=== PATIENT | female | born 1990 | race Caucasian/White ===

== ENCOUNTER 2019-05-23 13:10 | Emergency (ER) | payer SELFPAY ==
--- NOTE | 2019-05-23 14:48 | EDM.PDOC ---
ED HPI GENERAL MEDICAL PROBLEM - General Chief Complaint: Respiratory Problem Stated Complaint: COUGH BECOMES SOB Time Seen by Provider: 05/23/19 14:41 Source of Information: Reports: Patient, RN Notes Reviewed - History of Present Illness INITIAL COMMENTS - FREE TEXT/NARRATIVE: 8-year-old female with some intermittent shortness of breath over the past 7 to 10 days. This has been worse the past several days several attacks of difficulty breathing. She does have history of asthma. She has run out of her inhaler. Not have a current prescription. No recent cough congestion sore throat fever or chills. Chest Pain Score (Numeric/FACES): 8 - Related Data Allergies Allergy/AdvReac Type Severity Reaction Status Date / Time Fish Containing Products Allergy Vomiting Verified 05/23/19 14:18 Sulfa (Sulfonamide Allergy Hives Verified 05/23/19 14:18 Antibiotics) Home Meds: Home Meds . [No Known Home Meds] 05/23/19 [History] Past Medical History HEENT History: Reports: Cataract, Impaired Vision Cardiovascular History: Reports: Heart Murmur Respiratory History: Reports: Asthma Musculoskeletal History: Reports: Muscular Dystrophy - Past Surgical History Female Surgical History: Reports: D&C Neurological Surgical History: Reports: Scoliosis Social & Family History - Tobacco Use Smoking Status *Q: Never Smoker Second Hand Smoke Exposure: No - Caffeine Use Caffeine Use: Reports: Soda - Recreational Drug Use Recreational Drug Use: No ED ROS GENERAL - Review of Systems Review Of Systems: See Below Constitutional: Denies: Fever, Chills HEENT: Denies: Sinus Problem, Throat Pain Respiratory: Reports: Shortness of Breath, Wheezing. Denies: Cough Cardiovascular: Denies: Chest Pain GI/Abdominal: Denies: Abdominal Pain Musculoskeletal: Reports: No Symptoms Skin: Reports: No Symptoms Neurological: Reports: No Symptoms ED EXAM, GENERAL - Physical Exam Exam: See Below General Appearance: Alert, No Apparent Distress Nose: Normal Inspection Throat/Mouth: Normal Inspection, Normal Oropharynx Head: Atraumatic Neck: Supple Respiratory/Chest: No Respiratory Distress, Lungs Clear, Normal Breath Sounds. No: Rhonchi, Wheezing (No wheezing at time of exam) Cardiovascular: Regular Rate, Rhythm Extremities: Normal Inspection. No: Pedal Edema Neurological: Alert, Oriented, No Motor/Sensory Deficits Skin Exam: Warm, Dry, Normal Color Course - Vital Signs Last Recorded V/S: Last Vital Signs Temp 97.4 F 05/23/19 14:19 Pulse 75 05/23/19 14:19 Resp 14 05/23/19 14:19 BP 125/89 05/23/19 14:19 Pulse Ox 98 05/23/19 14:19 Departure - Departure Time of Disposition: 14:48 Disposition: Home, Self-Care 01 Condition: Fair Clinical Impression: Asthma - Discharge Information Instructions: Asthma, Adult, [id number] Referrals: PCP,None [Primary Care Provider] - Forms: ED Department Discharge Additional Instructions: albuterol inhaler 2 puffs every 4-6 hours as needed. Follow-up clinic as needed. Return to ED as needed. Sepsis Event Note - Evaluation Sepsis Screening Result: No Definite Risk - Focused Exam Date Exam was Performed: 05/28/19 Time Exam was Performed: 03:17
== END 2019-05-23 15:25 | disposition home or self-care (01) ==
LOC: JD.ED 13:10
CPT/HCPCS: 99282; 99284

== ENCOUNTER 2019-06-23 01:33 | Emergency (ER) | payer OTHER ==
[2019-06-23] MEDS ORDERED: Acetaminophen/HYDROcodone 325-5 MG Tab PO ONE (04:23)
--- NOTE | 2019-06-23 04:23 | EDM.PDOC ---
ED HPI GENERAL MEDICAL PROBLEM - General Chief Complaint: Lower Extremity Injury/Pain Stated Complaint: left foot injury at work Time Seen by Provider: 06/23/19 04:08 Source of Information: Reports: Patient, Significant Other (Boyfriend) History Limitations: Reports: No Limitations - History of Present Illness INITIAL COMMENTS - FREE TEXT/NARRATIVE: Ms. Sanz is a pleasant 28-year-old woman with a past medical history significant for untreated muscular dystrophy, who states that she slipped on ice and fell while taking the trash out at work around 00:30 this morning. When she did so, she twisted her left ankle, now presents with pain and swelling to the lateral aspect of the left ankle. She is otherwise uninjured. No prior left ankle or foot injury. The patient denies recent fever, chills, cough, dyspnea, chest pain, palpitations, nausea, vomiting, constipation, diarrhea, abdominal pain, urinary symptoms, recent weight gain or weight loss, recent bloody bowel movements or black bowel movements, recent joint aches, headaches, or rashes. Here in the ED, the patient is found to be hemodynamically stable, afebrile, saturating 98% on room air. The patient does not have a PCP. She did not receive an influenza vaccine this season, and declined an offer to receive one here today. Left Ankle Pain Score (Numeric/FACES): 6 - Related Data Allergies Allergy/AdvReac Type Severity Reaction Status Date / Time Fish Containing Products Allergy Vomiting Verified 06/23/19 02:06 Sulfa (Sulfonamide Allergy Hives Verified 06/23/19 02:06 Antibiotics) Home Meds: Home Meds Acetaminophen/HYDROcodone [Montgomery 325-5 MG] 1 - 2 tab PO Q6H PRN #20 tablet 06/22 [Rx] Ondansetron [Zofran ODT] 1 tab PO Q8H PRN #10 tab.dis 06/23/19 [Rx] Past Medical History HEENT History: Reports: Impaired Vision Respiratory History: Reports: Asthma (suspected, not tested) Musculoskeletal History: Reports: Back Pain, Chronic (Scoliosis), Muscular Dystrophy (untreated) - Past Surgical History HEENT Surgical History: Reports: Oral Surgery (2 wisdom teeth extraction surgeries) Female Surgical History: Reports: D&C (x 1) Social & Family History - Tobacco Use Smoking Status *Q: Never Smoker - Caffeine Use Caffeine Use: Reports: Soda - Alcohol Use Alcohol Use History: Yes Alcohol Use Frequency: Socially - Recreational Drug Use Recreational Drug Use: No - Living Situation & Occupation Living situation: Reports: Single, with Significant Other (Boyfriend) 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 ED EXAM, GENERAL - Physical Exam Exam: See Below Exam Limited By: No Limitations General Appearance: Alert, WD/WN, No Apparent Distress Extremities: Other (Moderate swelling without ecchymosis over the lateral left ankle. There is tenderness in this area. Minimal, if any, swelling to the remainder of the ankle. Neurovascular status of the left lower extremity is intact.) ED TRAUMA EXTREMITY PROCEDURES - Splinting Left Lower Extremity Splint Site: Left ankle Pre-Procedure NV Status: Normal Post-Procedure NV Status: Normal Splint Material: Fiberglass Splint Design: Posterior Applied & Form Fitted By: Provider Provider Post-Splint Application NV Check: NV Status Normal, Good Position Complications: No Course - Vital Signs Last Recorded V/S: Last Vital Signs Temp 36.8 C 06/23/19 01:45 Pulse 86 06/23/19 01:45 Resp 16 06/23/19 01:45 BP 112/76 06/23/19 01:45 Pulse Ox 98 06/23/19 01:45 - Orders/Labs/Meds Meds: Medications Discontinued Medications Generic Name Dose Route Start Last Admin Trade Name Freq PRN Reason Stop Dose Admin Hydrocodone Bitart/Acetaminophen 2 tab 06/23/19 04:23 06/23/19 04:33 Montgomery 325-5 Mg PO 06/23/19 04:24 2 tab ONETIME ONE Administration - Re-Assessments/Exams Free Text/Narrative Re-Assessment/Exam: 06/23/19 04:22 4-view radiographs of the patient's left ankle appear to demonstrate a comminuted but nondisplaced fracture of the distal fibula. The ankle mortise appears to be intact and normal in appearance. Soft tissue swelling is noted over the distal fibula. No other bony injuries or dislocations are seen. Formal read per the Radiologist pending. I will place the patient into a posterior mold splint, and have her fitted for crutches. She should ice and elevate her left ankle as much as possible. She should follow-up with Ortho in about 1 week. 06/23/19 04:42 A posterior mold splint was placed, with the patient's left ankle at about 90 degrees. I will discharge her home with a prescription for Montgomery and Zofran, with the recommendation that she take [id number] ibuprofen around-the- clock. Departure - Departure Time of Disposition: 04:42 Disposition: Home, Self-Care 01 Condition: Good Clinical Impression: Closed fracture of left distal fibula - Discharge Information *PRESCRIPTION DRUG MONITORING PROGRAM REVIEWED*: Not Applicable *COPY OF PRESCRIPTION DRUG MONITORING REPORT IN PATIENT MIKEY: Not Applicable Prescriptions: Acetaminophen/HYDROcodone [Montgomery 325-5 MG] 1 - 2 tab PO Q6H PRN #20 tablet PRN Reason: Pain (Severe 7-10) Ondansetron [Zofran ODT] 1 tab PO Q8H PRN #10 tab.dis PRN Reason: Nausea/Vomiting Instructions: Ankle Fracture, [id number] Referrals: Pasquale Connell MD [Physician] - Forms: ED Department Discharge, ED Return to Work/School Form Additional Instructions: You were seen in the emergency room after slipping and falling, injuring her left ankle. Work-up in the ER included x-rays of your left ankle, which showed that you have a distal fibula fracture. Your left ankle has been placed into a splint. The splint cannot get wet. We recommend that you ice and elevate your left ankle as much as possible over the next 2 days, to help minimize swelling. The splint is made of fiberglass, and will shatter if you bear weight on it. Use crutches for all ambulation. We recommend that you take [id number] ibuprofen, 2 to 3 tablets (400-600 mg) every 8 hours, [id number]. You may take 1 to 2 tablets of the opioid pain reliever Montgomery up to every 6 hours, as needed for pain not relieved by ibuprofen. If you take Montgomery, do not drive for 12 hours afterwards. Montgomery may cause constipation, so consider taking a stool softener. Because Montgomery may cause nausea, you have been prescribed the anti-nausea medicine Zofran. Dissolve 1 tablet of Zofran on your tongue up to every 8 hours , as needed for nausea/vomiting. Follow-up with the Orthopedic Surgeon Dr. Pasquale Connell in 1 week. We recommend that you call his office today to make an appointment. Let the insurance verification specialist know that you are following up from the ER. A note for work has been provided to you. If any other problems, please do not hesitate to return to the ER. Sepsis Event Note - Evaluation Sepsis Screening Result: No Definite Risk - Focused Exam Date Exam was Performed: 06/26/19 Time Exam was Performed: 02:42
--- NOTE | 2019-06-23 07:13 | CR ---
Left ankle: Four views of the left ankle were obtained. Comparison: No previous ankle study is available. Soft tissue swelling is identified. Fracture is identified within the lateral malleolus. Fracture remains anatomic in alignment. No additional fracture or other bony abnormality is identified. Impression: 1. Nondisplaced lateral malleolar fracture. 2. Soft tissue swelling is present. Diagnostic code #3 Study was dictated in MDT
== END 2019-06-23 05:20 | disposition home or self-care (01) ==
LOC: JD.ED 01:33
DX: S82.65XA Nondisplaced fracture of lateral malleolus of left fibula, initial encounter for closed fracture (principal); Z88.2 Allergy status to sulfonamides; Z91.013 Allergy to seafood; Z98.890 Other specified postprocedural states; W00.0XXA Fall on same level due to ice and snow, initial encounter
CPT/HCPCS: 29515; 73610; 99283; A9270

== ENCOUNTER 2020-03-27 17:59 | Emergency (ER) | payer SELFPAY ==
--- NOTE | 2020-03-27 19:34 | EDM.PDOC ---
ED HPI GENERAL MEDICAL PROBLEM - General Chief Complaint: Respiratory Problem Stated Complaint: CHEST PAIN/SOB X 2 DAYS Time Seen by Provider: 03/27/20 18:02 Source of Information: Reports: Patient, RN Notes Reviewed History Limitations: Reports: No Limitations - History of Present Illness INITIAL COMMENTS - FREE TEXT/NARRATIVE: Patient is a 29-year-old female presenting to the emergency department with complaints of chest tightness/pain, and shortness of breath that began yesterday afternoon. She describes feeling short of breath while at rest and with exertion. She describes her chest has been tight and painful. Taking a deep breath makes it worse. She does have a slight cough, but states she has asthma and this is fairly normal for her. She has been using her albuterol inhaler with little relief. She denies any recent fever, chills, nausea, vomiting, diarrhea. She has no nasal congestion. Denies any history of blood clots or cardiac pathology. Chest Pain Score (Numeric/FACES): 8 - Related Data Allergies Allergy/AdvReac Type Severity Reaction Status Date / Time Fish Containing Products Allergy Vomiting Verified 03/27/20 18:12 Sulfa (Sulfonamide Allergy Hives Verified 03/27/20 18:12 Antibiotics) Home Meds: Home Meds Acetaminophen/HYDROcodone [Crum 325-5 MG] 1 - 2 tab PO Q6H PRN #20 tablet 06/23/19 [Rx] Ondansetron [Zofran ODT] 1 tab PO Q8H PRN #10 tab.dis 06/23/19 [Rx] Azithromycin 250 mg PO ASDIRECTED 4 Days #4 tablet 03/27/20 [Rx] Past Medical History HEENT History: Reports: Impaired Vision Cardiovascular History: Reports: Heart Murmur Respiratory History: Reports: Asthma Musculoskeletal History: Reports: Back Pain, Chronic, Muscular Dystrophy - Past Surgical History HEENT Surgical History: Reports: Oral Surgery Female Surgical History: Reports: D&C Neurological Surgical History: Reports: Scoliosis Social & Family History - Tobacco Use Tobacco Use Status *Q: Never Tobacco User Second Hand Smoke Exposure: No - Caffeine Use Caffeine Use: Reports: None - Recreational Drug Use Recreational Drug Use: No - Living Situation & Occupation Living situation: Reports: Single, with Significant Other (Boyfriend) 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 Denies: Fever, Chills, Weakness HEENT: Reports: No Symptoms Respiratory: Reports: Shortness of Breath, Pleuritic Chest Pain, Cough Cardiovascular: Reports: Chest Pain, Dyspnea on Exertion. Denies: Lightheadedness, Syncope Endocrine: Reports: No Symptoms GI/Abdominal: Reports: No Symptoms : Reports: No Symptoms Musculoskeletal: Reports: No Symptoms Skin: Reports: No Symptoms Neurological: Reports: No Symptoms Psychiatric: Reports: No Symptoms Hematologic/Lymphatic: Reports: No Symptoms Immunologic: Reports: No Symptoms ED EXAM, GENERAL - Physical Exam Exam: See Below General Appearance: Alert, WD/WN, No Apparent Distress Respiratory/Chest: No Respiratory Distress, Lungs Clear, Normal Breath Sounds, No Accessory Muscle Use, Chest Non-Tender Cardiovascular: Normal Peripheral Pulses, Regular Rate, Rhythm, No Edema, No Gallop, No JVD, No Murmur, No Rub GI/Abdominal: Normal Bowel Sounds, Soft, Non-Tender, No Organomegaly, No Distention, No Abnormal Bruit, No Mass Neurological: Alert, Oriented, CN II-XII Intact, Normal Cognition, Normal Gait, Normal Reflexes, No Motor/Sensory Deficits Psychiatric: Normal Affect, Normal Mood Skin Exam: Warm, Dry, Intact, Normal Color, No Rash #1 Interpretation EKG Date: 03/27/20 Time: 18:29 Rhythm: NSR Rate (Beats/Min): 82 Oblong: Normal P-Wave: Present QRS: Normal ST-T: Normal QT: Normal Course - Vital Signs Last Recorded V/S: Last Vital Signs Temp 97 F 03/27/20 18:09 Pulse 91 03/27/20 18:09 Resp 16 03/27/20 18:09 BP 125/82 03/27/20 18:09 Pulse Ox 96 03/27/20 18:09 - Orders/Labs/Meds Orders: Active Orders 24 hr Category Date Time Status EKG Documentation Completion [RC] STAT Care 03/27/20 18:13 Active Chest 2V [CR] Stat Exams 03/27/20 18:13 Taken Chest PE [Ang Chest] [CT] Stat Exams 03/27/20 19:22 Taken CORONAVIRUS COVID-19 PCR PHL Routine Lab 03/27/20 22:00 Ordered Sodium Chloride 0.9% [Normal Saline] 100 ml Med 03/27/20 21:30 Active IV ASDIRECTED Medication Orders Sodium Chloride (Normal Saline) 100 mls @ 100 mls/hr IV ASDIRECTED LAUREN Last Admin: 03/27/20 21:28 Dose: 100 mls/hr Documented by: TADEO Labs: Laboratory Tests 03/27/20 03/27/20 03/27/20 Range/Units 18:30 18:30 18:30 WBC 10.08 H (3.98-10.04) K/mm3 RBC 5.25 H (3.98-5.22) M/mm3 Hgb 14.5 (11.2-15.7) gm/dl Hct 44.6 (34.1-44.9) % MCV 85.0 (79.4-94.8) fl MCH 27.6 (25.6-32.2) pg MCHC 32.5 (32.2-35.5) g/dl RDW Std Deviation 44.6 (36.4-46.3) fL Plt Count 279 (182-369) K/mm3 MPV 9.7 (9.4-12.3) fl Neut % (Auto) 60.9 (34.0-71.1) % Lymph % (Auto) 30.8 (19.3-51.7) % Terrell % (Auto) 6.4 (4.7-12.5) % Eos % (Auto) 1.6 (0.7-5.8) Baso % (Auto) 0.1 (0.1-1.2) % Neut # (Auto) 6.14 H (1.56-6.13) K/mm3 Lymph # (Auto) 3.10 (1.18-3.74) K/mm3 Terrell # (Auto) 0.65 H (0.24-0.36) K/mm3 Eos # (Auto) 0.16 (0.04-0.36) K/mm3 Baso # (Auto) 0.01 (0.01-0.08) K/mm3 Manual Slide Review Normal smear D-Dimer, Quantitative 0.55 H (0.19-0.50) mg/L Sodium 140 (136-145) mEq/L Potassium 4.0 (3.5-5.1) mEq/L Chloride 104 (98-107) mEq/L Carbon Dioxide 29 (21-32) mEq/L Anion Gap 11.0 (5-15) BUN 10 (7-18) mg/dL Creatinine 0.9 (0.55-1.02) mg/dL Est Cr Clr Drug Dosing 82.25 mL/min Estimated GFR (MDRD) > 60 (>60) mL/min BUN/Creatinine Ratio 11.1 L (14-18) Glucose 103 (74-106) mg/dL Calcium 9.7 (8.5-10.1) mg/dL Total Bilirubin 0.3 (0.2-1.0) mg/dL AST 22 (15-37) U/L ALT 34 (14-59) U/L Alkaline Phosphatase 84 (46-116) U/L Troponin I < 0.017 (0.00-0.056) ng/mL C-Reactive Protein 0.5 (<1.0) mg/dL Total Protein 7.1 (6.4-8.2) g/dl Albumin 3.7 (3.4-5.0) g/dl Globulin 3.4 gm/dL Albumin/Globulin Ratio 1.1 (1-2) Meds: Medications Generic Name Dose Route Start Last Admin Trade Name Freq PRN Reason Stop Dose Admin Sodium Chloride 100 mls @ 100 mls/hr 03/27/20 21:30 03/27/20 21:28 Normal Saline IV 100 mls/hr ASDIRECTED LAUREN Administration Discontinued Medications Generic Name Dose Route Start Last Admin Trade Name Freq PRN Reason Stop Dose Admin Azithromycin 500 mg 03/27/20 21:58 Zithromax PO 03/27/20 21:59 ONETIME ONE Diphenhydramine HCl 50 mg 03/27/20 20:18 03/27/20 20:24 Benadryl IVPUSH 03/27/20 20:19 50 mg ONETIME ONE Administration Famotidine 20 mg 03/27/20 20:18 03/27/20 20:24 Pepcid IVPUSH 03/27/20 20:19 20 mg ONETIME ONE Administration Iopamidol 100 ml 03/27/20 21:27 03/27/20 21:28 Isovue-370 (76%) IVPUSH 03/27/20 21:28 100 ml ONETIME ONE Administration Methylprednisolone Sodium Succinate 125 mg 03/27/20 20:17 03/27/20 20:24 Solu-Medrol IVPUSH 03/27/20 20:18 125 mg ONETIME ONE Administration - Re-Assessments/Exams Free Text/Narrative Re-Assessment/Exam: Patient is a 29-year-old female presenting to the emergency department with co mplaints of chest pain/tightness, shortness of breath that began yesterday afternoon. She has a history of asthma, but states this feels different than her previous asthma exacerbations. She has been using her albuterol inhaler with no relief. On triage, vital signs are stable. Oxygen saturation was 96% on room air, she is afebrile, and pulse rate of 91. She has no history of blood clots. I ordered CBC, CMP, CRP, D-dimer, troponin, EKG, and chest x-ray. 03/27/20 19:33 Patient's D-dimer came back minimally elevated at 0.55. Remaining lab work was unremarkable. EKG showed no acute ischemia. Chest x-ray showed no acute abnormalities. I ordered a CT angiogram of the chest to rule out PE. Patient has a history of fish allergies. States she has vomiting and has broken out in a rash when eating shrimp. We will premedicate with Solu-Medrol, Benadryl, and Pepcid prior to CT scan. 03/27/20 21:[address] angiogram is as follows 1. No evidence of pulmonary embolism or aortic dissection. 2. Mild bilateral bronchial wall thickening suspicious for mild bronchitis or bronchial edema. Patchy mild groundglass mosaic attenuation in the perihilar and basilar distributions probably relates to bronchitis/bronchiolitis with mild intermixed air trapping and subsegmental atelectasis. Patchy mild edema or pneumonitis considered less likely. Discussed with patient that it is possible that she could have Covid. We will complete a state send out Covid test today. I will put her on a prescription for azithromycin although this is likely viral in nature. Recommend she c ontinue her previously prescribed asthma medications discussed that she needs to self quarantine until Covid results are available. Discussed return precautions. Discharge instructions as documented. Departure - Departure Time of Disposition: 21:56 Disposition: Home, Self-Care 01 Condition: Good Clinical Impression: Bronchitis - Discharge Information *PRESCRIPTION DRUG MONITORING PROGRAM REVIEWED*: No *COPY OF PRESCRIPTION DRUG MONITORING REPORT IN PATIENT MIKEY: No Prescriptions: Azithromycin 250 mg PO ASDIRECTED 4 Days #4 tablet Instructions: Acute Bronchitis, Adult, [id number] Referrals: PCP,None [Primary Care Provider] - Forms: ED Department Discharge, ED Return to Work/School Form Additional Instructions: You were seen in the emergency department today for chest tightness as well as shortness of breath that began yesterday. Work-up included blood work, chest x- ray, EKG of your heart, and a CT angiogram of your chest. Results of your work- up showed that you have bronchitis. As we discussed, the majority of bronchitis is are viral in nature, however you have been started on azithromycin to cover for possibility of bacterial bronchitis. A Covid test has been completed today. You must isolate until your symptoms have resolved and Covid test results are available. You have been provided a note off from work. Recommend that you continue to use your previously prescribed asthma medications. Return to ER for any new or worsening symptoms of concern. Sepsis Event Note (ED) - Evaluation Sepsis Screening Result: No Definite Risk - Focused Exam Vital Signs: Vital Signs Temp Pulse Resp BP Pulse Ox 03/27/20 18:09 97 F 91 16 125/82 96 - My Orders Last 24 Hours: My Active Orders 03/27/20 18:13 EKG Documentation Completion [RC] STAT Chest 2V [CR] Stat 03/27/20 19:22 Chest PE [Ang Chest] [CT] Stat 03/27/20 21:30 Sodium Chloride 0.9% [Normal Saline] 100 ml IV ASDIRECTED 03/27/20 22:00 CORONAVIRUS COVID-19 PCR PHL Routine - Assessment/Plan Last 24 Hours: My Active Orders 03/27/20 18:13 EKG Documentation Completion [RC] STAT Chest 2V [CR] Stat 03/27/20 19:22 Chest PE [Ang Chest] [CT] Stat 03/27/20 21:30 Sodium Chloride 0.9% [Normal Saline] 100 ml IV ASDIRECTED 03/27/20 22:00 CORONAVIRUS COVID-19 PCR PHL Routine
[2020-03-27] MEDS ORDERED: methylPREDNISolone Sodium Succinate 125 MG/2 ML SDV IVPUSH ONE (20:17)
[2020-03-27] MEDS ORDERED: Famotidine 20 MG/2 ML SDV IVPUSH ONE (20:18)
[2020-03-27] MEDS ORDERED: diphenhydrAMINE 50 MG/ML SDV IVPUSH ONE (20:18)
[2020-03-27] MEDS ORDERED: Iopamidol 755 Mg/ML 100 ML Bottle IVPUSH ONE (21:27)
[2020-03-27] MEDS ORDERED: Sodium Chloride 0.9% 100 ML IV SCH (21:30)
[2020-03-27] MEDS ORDERED: Azithromycin 250 MG Tab PO ONE (21:58)
--- NOTE | 2020-03-28 08:49 | CR ---
Chest: 2 views of the chest were obtained. Comparison: No prior chest imaging is available. Heart size and mediastinum are normal. Lungs show no definite acute parenchymal change. Bony structures are unremarkable. Impression: 1. Nothing acute is seen on 2 view chest x-ray. Diagnostic code #1
--- NOTE | 2020-03-28 08:49 | CT ---
CT chest Technique: Multiple axial sections were obtained from above the lung apices inferiorly through the lung bases. Intravenous contrast was utilized. Study has been performed as a pulmonary angiogram protocol. Findings: Pulmonary arteries are well opacified. No filling defects are seen to indicate pulmonary embolism. Thoracic aorta shows no aneurysm. No mediastinal adenopathy is seen. No pericardial thickening is seen. No axillary adenopathy is noted. Visualized upper abdominal structures shows no discrete abnormality. Slight hazy densities noted within the lower lungs. Lungs otherwise appear to be clear. No pleural effusions or pneumothorax is seen. Bone window settings were reviewed which shows no acute osseous finding. Impression: 1. Hazy groundglass appearance within both lower lungs most likely representing mild areas of bronchitis. 2. No findings of pulmonary embolism. 3. No other acute abnormality is seen. Diagnostic code #3 I agree with preliminary report from [facility], finalized on 03/27/20, 10:30 PM MOTHER BABY RN
== END 2020-03-27 22:22 | disposition home or self-care (01) ==
LOC: JD.ED 17:59
DX: J40 Bronchitis, not specified as acute or chronic (principal); Z91.013 Allergy to seafood; Z88.2 Allergy status to sulfonamides; Z20.828 Contact with and (suspected) exposure to other viral communicable diseases
CPT/HCPCS: 36415; 71046; 71275; 80053; 84484; 85025; 85379; 86140; 87635; 93005; 96374; 96375; 99285; A9270; J1200; J2930; J3490; Q9967; 93010; 99283; U0002

== ENCOUNTER 2022-03-22 06:30 | Emergency (ER) | payer OTHER ==
[2022-03-22] MEDS ORDERED: Ketorolac 60 MG/2 ML SDV IM ONE (07:01)
[2022-03-22] MEDS ORDERED: HYDROmorphone 1 MG/ML Syringe IM ONE (07:01)
== END 2022-03-22 08:35 | disposition home or self-care (01) ==
LOC: JD.ED 06:30
DX: S16.1XXA Strain of muscle, fascia and tendon at neck level, initial encounter (principal); S46.911A Strain of unspecified muscle, fascia and tendon at shoulder and upper arm level, right arm, initial encounter; S46.912A Strain of unspecified muscle, fascia and tendon at shoulder and upper arm level, left arm, initial encounter; S63.501A Unspecified sprain of right wrist, initial encounter; S63.502A Unspecified sprain of left wrist, initial encounter; S00.03XA Contusion of scalp, initial encounter; Z91.013 Allergy to seafood; Z88.2 Allergy status to sulfonamides; W00.9XXA Unspecified fall due to ice and snow, initial encounter
CPT/HCPCS: 70450; 72125; 73030; 73100; 96372; 99284; J1170; J1885

== ENCOUNTER 2022-03-25 16:24 | Emergency (ER) | payer OTHER ==
[2022-03-25] MEDS ORDERED: Acetaminophen/HYDROcodone 325-5 MG Tab PO ONE (17:08)
== END 2022-03-25 19:17 | disposition home or self-care (01) ==
LOC: JD.ED 16:24
DX: S63.92XA Sprain of unspecified part of left wrist and hand, initial encounter (principal); Z91.013 Allergy to seafood; Z88.2 Allergy status to sulfonamides; W19.XXXA Unspecified fall, initial encounter
CPT/HCPCS: 73110; 73120; 99283; A9270

== ENCOUNTER 2022-04-03 08:54 | Emergency (ER) | payer OTHER | END 2022-04-03 11:40 | disposition home or self-care (01) | LOC: JD.ED 08:54 | DX: M65.4 Radial styloid tenosynovitis [de Quervain] (principal); Z88.2 Allergy status to sulfonamides; Z91.013 Allergy to seafood; Z79.899 Other long term (current) drug therapy; Z86.16 Personal history of COVID-19 | CPT/HCPCS: 73110-26-LT; 73110-26-RT; 73110-LT; 73110-RT; 99283 ==

== ENCOUNTER 2023-01-14 16:16 | Emergency (ER) | payer SELFPAY ==
[2023-01-14 17:48] LABS: BASOPHILS ABSOLUTE AUTO 0.1 K/mm3 (0.0-0.2); BASOPHILS PERCENT AUTO 0.5 % (0.0-1.0); EOSINOPHILS ABSOLUTE AUTO 0.2 K/mm3 (0.0-0.4); EOSINOPHILS PERCENT AUTO 1.9 % (0.0-6.0); HEMATOCRIT 45.6 % (37.0-47.0); HEMOGLOBIN 14.7 gm/dl (12.0-16.0); IMMATURE GRAN ABSOLUTE AUTO 0.02 K/mm3 (0.00-0.05); IMMATURE GRAN PERCENT AUTO 0.2 % (0.0-0.4); LYMPHOCYTES ABSOLUTE AUTO 3.9 K/mm3 (1.0-4.8); LYMPHOCYTES PERCENT AUTO 38.8 % (24.0-44.0); MEAN CORPUSCULAR HEMOGLOBIN 27.4 pg (28.0-32.0); MEAN CORPUSCULAR HGB CONC 32.2 g/dl (32.0-36.0); MEAN CORPUSCULAR VOLUME 84.9 fl (83.0-99.0); MEAN PLATELET VOLUME 9.3 fl (9.4-12.3); MONOCYTES ABSOLUTE AUTO 0.6 K/mm3 (0.0-0.8); MONOCYTES PERCENT AUTO 5.7 % (0.0-8.0); NEUTROPHILS ABSOLUTE AUTO 5.2 K/mm3 (1.8-7.7); NEUTROPHILS PERCENT AUTO 52.9 % (41.0-71.0); PLATELET COUNT,PLT 295 K/mm3 (150-400); RED BLOOD CELL COUNT 5.37 M/mm3 (4.10-5.30); WHITE BLOOD CELL COUNT,WBC 9.92 K/mm3 (3.9-11.3)
[2023-01-14 18:13] LABS: A/G RATIO 0.9 (1-2); ALBUMIN 3.5 g/dl (3.4-5.0); ANION GAP 11.3 (5-15); BILIRUBIN TOTAL 0.3 mg/dL (0.2-1.0); BUN/CREATININE RATIO 13.8 (14-18); C-REACTIVE PROTEIN 0.3 mg/dL (<1.0); CALCIUM 9.1 mg/dL (8.5-10.1); CREATININE 0.8 mg/dL (0.55-1.02); EST CRCL DRUG DOSING (CG) 93.63 mL/min; POTASSIUM,K 4.3 mEq/L (3.5-5.1); PROTEIN TOTAL,TP 7.3 g/dl (6.4-8.2)
[2023-01-14] MEDS ORDERED: Albuterol 6.7 GM Inhaler INH ONE (18:41)
== END 2023-01-14 19:15 | disposition home or self-care (01) ==
LOC: JD.ED 16:16
DX: R07.89 Other chest pain (principal); J45.909 Unspecified asthma, uncomplicated; Z86.16 Personal history of COVID-19; Z88.2 Allergy status to sulfonamides; Z91.013 Allergy to seafood; Z79.899 Other long term (current) drug therapy
CPT/HCPCS: 36415; 71046; 80053; 84484; 85025; 85379; 86140; 93005; 94640; 99285; A9270; 93010; 99282

== ENCOUNTER 2023-11-01 08:27 | Day surgery (SDC) | payer BC ==
[~2023-11-01 08:27] MED LIST: Polymyxin B/Trimethoprim 10 ML Bottle EYELF SCH
[2023-11-01] MEDS: Ofloxacin 0.3% Ophth Soln 5 ML Bottle EYELF SCH (09:32)
[2023-11-01] MEDS: Brimonidine 0.2% Ophth Soln 5 ML Bottle EYELF SCH (09:37)
[2023-11-01] MEDS: Phenylephrine 2.5% Ophth Soln 2 ML Bot EYELF SCH (09:41)
[2023-11-01] MEDS: Tropicamide 1% Ophth Soln 3 ML Bottle EYELF SCH (09:46)
[2023-11-01] MEDS ORDERED: Midazolam 1 MG/ML 2 ML SDV ONE (10:35)
[2023-11-01] MEDS: Lidocaine 1% PF 2 ML SDV INJECT SCH (10:52)
[2023-11-01] MEDS: Tetracaine HCl/PF 0.5% 4 ML Bottle EYEBOTH SCH (10:53)
[2023-11-01] MEDS: Cefuroxime 10 MG/ML SYRINGE EYELF SCH (11:03)
[2023-11-01] MEDS: Pilocarpine 4% Ophth Soln 15 ML Bot EYELF SCH (11:04)
== END 2023-11-01 11:15 | disposition home or self-care (01) ==
LOC: JD.SDS 08:27
PROVIDERS: ATTEND Ophthalmology
DX: H25.043 Posterior subcapsular polar age-related cataract, bilateral (principal); H25.013 Cortical age-related cataract, bilateral; J45.909 Unspecified asthma, uncomplicated
CPT/HCPCS: 66984; A9270; J0697; J2250; J3490

== ENCOUNTER 2024-01-03 12:31 | Day surgery (SDC) | payer BC ==
[~2024-01-03 12:31] MED LIST changes: +Cefuroxime 10 MG/ML SYRINGE EYERT SCH; +Lidocaine 1% PF 2 ML SDV INJECT SCH; +Pilocarpine 4% Ophth Soln 15 ML Bot EYERT SCH; -Polymyxin B/Trimethoprim 10 ML Bottle EYELF SCH
[2024-01-03] MEDS: Ofloxacin 0.3% Ophth Soln 5 ML Bottle EYERT SCH (13:10)
[2024-01-03] MEDS: Brimonidine 0.2% Ophth Soln 5 ML Bottle EYERT SCH (13:15)
[2024-01-03] MEDS: Phenylephrine 2.5% Ophth Soln 2 ML Bot EYERT SCH (13:20)
[2024-01-03] MEDS: Tropicamide 1% Ophth Soln 3 ML Bottle EYERT SCH (13:25)
[2024-01-03] MEDS: Tetracaine HCl/PF 0.5% 4 ML Bottle EYEBOTH SCH (14:25)
== END 2024-01-03 14:57 | disposition home or self-care (01) ==
LOC: JD.SDS 12:31
PROVIDERS: ATTEND Ophthalmology
DX: H25.811 Combined forms of age-related cataract, right eye (principal); J45.909 Unspecified asthma, uncomplicated
CPT/HCPCS: 66984; A9270; J3490

== ENCOUNTER 2024-09-11 06:17 | Emergency (ER) | payer BC ==
[2024-09-11] MEDS ORDERED: Sodium Chloride 0.9% 10 ML Syringe FLUSH PRN (06:41)
[2024-09-11 06:50] LABS: BASOPHILS PERCENT AUTO 0.3 % (0.0-1.0); EOSINOPHILS ABSOLUTE AUTO 0.2 K/mm3 (0.0-0.4); EOSINOPHILS PERCENT AUTO 2.1 % (0.0-6.0); HEMATOCRIT 48.6 % (37.0-47.0); HEMOGLOBIN 15.3 gm/dl (12.0-16.0); IMMATURE GRAN ABSOLUTE AUTO 0.04 K/mm3 (0.00-0.05); IMMATURE GRAN PERCENT AUTO 0.4 % (0.0-0.4); LYMPHOCYTES ABSOLUTE AUTO 3.2 K/mm3 (1.0-4.8); LYMPHOCYTES PERCENT AUTO 32.2 % (24.0-44.0); MEAN CORPUSCULAR HEMOGLOBIN 26.2 pg (28.0-32.0); MEAN CORPUSCULAR HGB CONC 31.5 g/dl (32.0-36.0); MEAN CORPUSCULAR VOLUME 83.2 fl (83.0-99.0); MEAN PLATELET VOLUME 9.4 fl (9.4-12.3); MONOCYTES ABSOLUTE AUTO 0.5 K/mm3 (0.0-0.8); MONOCYTES PERCENT AUTO 4.8 % (0.0-8.0); NEUTROPHILS ABSOLUTE AUTO 6.1 K/mm3 (1.8-7.7); NEUTROPHILS PERCENT AUTO 60.2 % (41.0-71.0); PLATELET COUNT,PLT 323 K/mm3 (150-400); RED BLOOD CELL COUNT 5.84 M/mm3 (4.10-5.30); WHITE BLOOD CELL COUNT,WBC 10.06 K/mm3 (3.9-11.3)
[2024-09-11 07:04] LABS: A/G RATIO 0.8 (1-2); ALBUMIN 3.6 g/dl (3.4-5.0); ANION GAP 11.2 (5-15); BILIRUBIN TOTAL 0.4 mg/dL (0.2-1.0); BUN/CREATININE RATIO 16.3 (14-18); CREATININE 0.8 mg/dL (0.55-1.02); EST CRCL DRUG DOSING (CG) 74.77 mL/min; POTASSIUM,K 4.2 mEq/L (3.5-5.1); PROTEIN TOTAL,TP 7.9 g/dl (6.4-8.2)
== END 2024-09-11 08:14 | disposition home or self-care (01) ==
LOC: JD.ED 06:17
DX: R07.89 Other chest pain (principal); G71.00 Muscular dystrophy, unspecified; J45.909 Unspecified asthma, uncomplicated; Z88.2 Allergy status to sulfonamides; Z91.013 Allergy to seafood; Z79.51 Long term (current) use of inhaled steroids; Z79.899 Other long term (current) drug therapy; Z86.16 Personal history of COVID-19; Z87.891 Personal history of nicotine dependence
CPT/HCPCS: 36415; 71045; 71045-26; 80053; 83690; 84484; 84703; 85025; 93005; 93010; 99284; 99285

== ENCOUNTER 2024-12-17 08:29 | Emergency (ER) | payer SELFPAY ==
[2024-12-17 09:09] LABS: BASOPHILS ABSOLUTE AUTO 0.0 K/mm3 (0.0-0.2); BASOPHILS PERCENT AUTO 0.5 % (0.0-1.0); EOSINOPHILS ABSOLUTE AUTO 0.2 K/mm3 (0.0-0.4); EOSINOPHILS PERCENT AUTO 1.9 % (0.0-6.0); IMMATURE GRAN ABSOLUTE AUTO 0.03 K/mm3 (0.00-0.05); IMMATURE GRAN PERCENT AUTO 0.3 % (0.0-0.4); LYMPHOCYTES ABSOLUTE AUTO 2.5 K/mm3 (1.0-4.8); LYMPHOCYTES PERCENT AUTO 28.3 % (24.0-44.0); MEAN PLATELET VOLUME 9.6 fl (9.4-12.3); MONOCYTES ABSOLUTE AUTO 0.5 K/mm3 (0.0-0.8); MONOCYTES PERCENT AUTO 5.3 % (0.0-8.0); NEUTROPHILS ABSOLUTE AUTO 5.7 K/mm3 (1.8-7.7); NEUTROPHILS PERCENT AUTO 63.7 % (41.0-71.0); NRBC ABSOLUTE 0.00 (0.00-0.02); NRBC PERCENT 0.0 % (0.0-0.2); PLATELET COUNT,PLT 314 K/mm3 (150-400); RED BLOOD CELL COUNT 5.56 M/mm3 (4.10-5.30); WHITE BLOOD CELL COUNT,WBC 8.88 K/mm3 (3.9-11.3)
[2024-12-17] MEDS: Alum Hydrox/Mag Hydrox/Simeth 30 ML, Lidocaine 2% 15 ML PO ONE (09:16)
[2024-12-17] MEDS: Sodium Chloride 0.9% 10 ML Syringe FLUSH PRN (09:17)
[2024-12-17 09:21] LABS: A/G RATIO 0.9 (1-2); ALANINE AMINOTRANSFERASE,ALT 35.0 U/L (14-59); ASPARTATE AMNIOTRANSFERASE,AST 23.0 U/L (15-37); BILIRUBIN TOTAL 0.3 mg/dL (0.2-1.0); BLOOD UREA NITROGEN,BUN 8.0 mg/dL (7-18); CARBON DIOXIDE,CO2 28.0 mEq/L (21-32); CHLORIDE,CL 107.0 mEq/L (98-107); CREATININE 0.7 mg/dL (0.55-1.02); EST CRCL DRUG DOSING (CG) 84.65 mL/min; ESTIMATED GFR 116.0 mL/min (>60); GLUCOSE RANDOM 114.0 mg/dL (70-99); POTASSIUM,K 4.0 mEq/L (3.5-5.1); PROTEIN TOTAL,TP 7.2 g/dl (6.4-8.2); SODIUM,NA 145.0 mEq/L (136-145); TROPONIN I HIGH SENSITIVITY 6.0 pg/mL (<=51)
== END 2024-12-17 12:00 | disposition home or self-care (01) ==
LOC: JD.ED 08:29
DX: R07.9 Chest pain, unspecified (principal); J45.909 Unspecified asthma, uncomplicated; Z88.2 Allergy status to sulfonamides; Z91.013 Allergy to seafood; Z86.16 Personal history of COVID-19
CPT/HCPCS: 36415; 71045; 80053; 83690; 84484; 84703; 85025; 85379; 93005; 99285; A9270; J3490

== ENCOUNTER 2025-02-12 20:05 | Emergency (ER) | payer SELFPAY ==
[2025-02-12] MEDS ORDERED: Sodium Chloride 0.9% 10 ML Syringe FLUSH PRN (21:05)
[2025-02-12 21:11] LABS: BASOPHILS ABSOLUTE AUTO 0.0 K/mm3 (0.0-0.2); BASOPHILS PERCENT AUTO 0.3 % (0.0-1.0); EOSINOPHILS ABSOLUTE AUTO 0.2 K/mm3 (0.0-0.4); EOSINOPHILS PERCENT AUTO 1.5 % (0.0-6.0); IMMATURE GRAN ABSOLUTE AUTO 0.04 K/mm3 (0.00-0.05); IMMATURE GRAN PERCENT AUTO 0.3 % (0.0-0.4); LYMPHOCYTES ABSOLUTE AUTO 4.0 K/mm3 (1.0-4.8); LYMPHOCYTES PERCENT AUTO 33.1 % (24.0-44.0); MEAN PLATELET VOLUME 10.1 fl (9.4-12.3); MONOCYTES ABSOLUTE AUTO 0.6 K/mm3 (0.0-0.8); MONOCYTES PERCENT AUTO 5.2 % (0.0-8.0); NEUTROPHILS ABSOLUTE AUTO 7.2 K/mm3 (1.8-7.7); NEUTROPHILS PERCENT AUTO 59.6 % (41.0-71.0); NRBC ABSOLUTE 0.00 (0.00-0.02); NRBC PERCENT 0.0 % (0.0-0.2); PLATELET COUNT,PLT 353 K/mm3 (150-400); RED BLOOD CELL COUNT 6.02 M/mm3 (4.10-5.30); WHITE BLOOD CELL COUNT,WBC 12.01 K/mm3 (3.9-11.3)
[2025-02-12] MEDS: Ketorolac 30 MG/ML SDV IVPUSH ONE (21:13)
[2025-02-12 21:23] LABS: BLOOD UREA NITROGEN,BUN 11.0 mg/dL (7-18); CARBON DIOXIDE,CO2 28.0 mEq/L (21-32); CHLORIDE,CL 105.0 mEq/L (98-107); CREATININE 0.9 mg/dL (0.55-1.02); EST CRCL DRUG DOSING (CG) 65.84 mL/min; ESTIMATED GFR 86.0 mL/min (>60); GLUCOSE RANDOM 96.0 mg/dL (70-99); POTASSIUM,K 3.6 mEq/L (3.5-5.1); SODIUM,NA 145.0 mEq/L (136-145); TROPONIN I HIGH SENSITIVITY 7.0 pg/mL (<=51)
== END 2025-02-12 22:30 | disposition home or self-care (01) ==
LOC: JD.ED 20:05
DX: R07.1 Chest pain on breathing (principal); Z88.2 Allergy status to sulfonamides; Z91.018 Allergy to other foods; Z79.899 Other long term (current) drug therapy; Z86.16 Personal history of COVID-19
CPT/HCPCS: 36415; 71046; 80048; 84484; 84703; 85025; 85379; 93005; 96374; 99285; J1885